=== PATIENT | female | born 1960 | race Caucasian/White ===

== ENCOUNTER → 2021-12-12 | Outpatient (CLI) | payer OTHER ==
[~2021-12-12] MED LIST: CYAN1000 PO; DIGESTIVE ENZYMES PO; FISH1000 PO; Hair, Skin & N1 EACH PO; OMEGA 3 PO; PYRI100 PO; THYROID PO; TRI IODINE PO; VITAMIN D PO
== END | disposition home or self-care (01) ==
LOC: LAB SHORT 07:21 → PLD 07:21
DX: L82.1 Other seborrheic keratosis (principal)
CPT/HCPCS: 88305